=== PATIENT | female | born 1960 | race Caucasian/White ===

== ENCOUNTER 2016-11-18 13:52 | Inpatient (IN) | payer OTHER ==
[~2016-11-18] VITALS: Ht 165.1 cm; Wt 100.7 kg
[~2016-11-18 13:52] MED LIST: ADVIL,NUPRIN,M200 MG PO; BENADRYL25 MG PO; BENZTROPINE MESY1 MG PO; BUSPIRONE HCL10 MG PO; CHANTIX PO; CITALOPRAM HBR10 MG PO; CLONIDINE HCL0.1 MG PO; CLONIDINE HCL0.2 MG PO; COGENTIN0.5 MG PO; DOXYCYCLINE HY100 MG PO; DULCOLAX5 MG PO; HYCODAN SYRUP480 ML PO; IBUPROFEN600 MG PO; LAMICTAL200 MG PO; LAMICTAL25 MG PO; LAMOTRIGINE200 MG PO; LATUDA40 MG PO; LEVAQUIN500 MG PO; LITHIUM CARBON300 M2 PO; LITHIUM CARBON300 MG PO; MACROBID100 MG PO; NICODERM CQ1 EACH TD; OMEPRAZOLE10 M1 PO; OMEPRAZOLE40 M1 PO; PEN-VEE K,VEET500 MG PO; PEPCID20 MG PO; PEPCID40 MG PO; PREDNISONE20 MG PO; PREDNISONE50 MG PO; PREVACID30 MG PO; PROAIR HFA8.5 GM IH; PROMETHAZINE HC25 M1 PO; RISPERIDONE1 MG PO; ROBITUSSIN AC,T10 ML PO; SAPHRIS5 MG SL; TRAZODONE HCL50 MG PO; TUMS500 MG PO; ULTRAM50 MG PO
[2016-11-18 16:25] LABS: HEMATOCRIT 48.5 % (36.0-46.0); MCH 27.6 PG (29.0-34.0); MCHC 30.7 G/DL (30.0-36.0); MEAN PLAT.VOLUME 10.2 uM^3 (9.5-12.4); PLATELET COUNT 371 K/uL (156-360); RBC DIS.WIDTH-CV 13.5 % (11.8-14.6); RED BLOOD COUNT 5.39 M/uL (3.80-5.20); WHITE BLOOD COUNT 16.2 K/uL (4.1-10.2)
[2016-11-18 16:38] LABS: CHLORIDE 102 mEq/L (99-109); SODIUM 140 mEq/L (136-147)
[2016-11-18 16:40] LABS: GLUCOSE 123 mg/dL (70-99)
[2016-11-18 16:41] LABS: ANION GAP 13 MEQ/L (2-14)
[2016-11-18 16:44] LABS: GFR ESTIMATE (CALCULATED) 25 mL/min/
[2016-11-18 16:45] LABS: UREA NITROGEN (BUN) 26 mg/dL (9-23)
[2016-11-18 16:46] LABS: TROP-I INTERPRETATION NEGATIVE; TROPONIN-I 0.01 ng/mL (0.0-0.30)
[2016-11-18] MEDS ORDERED: CATAPRES0.1 MG PO (16:59)
[2016-11-18] MEDS ORDERED: TESSALON200 MG PO (16:59)
[2016-11-18] MEDS ORDERED: GEODON40 MG PO (17:01)
[2016-11-18] MEDS ORDERED: NEURONTIN400 MG PO (17:01)
[2016-11-18] MEDS ORDERED: PREDNISONE10 MG PO (17:02)
[2016-11-18 21:45] VITALS: BP 118/74
[2016-11-19 00:16] VITALS: BP 156/56
[2016-11-19 08:00] VITALS: BP 117/69
[2016-11-19 08:14] LABS: ANION GAP 10 MEQ/L (2-14); CHLORIDE 101 MEQ/L (99-109); GFR ESTIMATE (CALCULATED) 27 mL/min/; GLUCOSE 107 mg/dL (70-99); SAMPLE HEMOLYSIS CHECK 0; SAMPLE ICTERIC CHECK 0; SAMPLE LIPEMIA CHECK 0; SODIUM 137 MEQ/L (136-147); UREA NITROGEN (BUN) 34 mg/dL (9-23)
[2016-11-19 11:45] LABS: METHEMOGLOBIN 1.4 % (0-1.5); PCO2 55 mm Hg (35-45); PO2 44 mm Hg (80-100)
[2016-11-19 11:48] LABS: COMMENTS - BLOOD GASES A+C+; DEVICE NC; O2 FLOW 2 L/MIN; SITE RR; TOTAL RESP RATE 14 resp/min; pH 7.33 (7.35-7.45)
[2016-11-19 12:00] VITALS: BP 120/72
[2016-11-19 12:43] LABS: ADD MIUA? YES; BILIRUBIN NEGATIVE; BLOOD NEGATIVE; COLOR YELLOW ((YELLOW)); GLUCOSE (STRIP) NEGATIVE; KETONES NEGATIVE; LEUKOCYTES NEGATIVE; NITRITE NEGATIVE; PROTEIN (STRIP) NEGATIVE; SPECIFIC GRAVITY 1.015 (1.000-1.030); UROBILINOGEN 0.2 MG/DL (0.2-1.0)
[2016-11-19 12:54] LABS: BACTERIA RARE /HPF; EPITHELIAL CELLS RARE /HPF; MUCUS TRACE /LPF; RED BLOOD CELLS 0-5 /HPF (0-5); UCUL ADDED? NO; WHITE BLOOD CELLS 0-5 /HPF (0-5)
[2016-11-19 12:59] LABS: ANION GAP 7 MEQ/L (2-14); CHLORIDE 99 MEQ/L (99-109); POTASSIUM 3.9 MEQ/L (3.7-5.4); SAMPLE HEMOLYSIS CHECK 0; SAMPLE ICTERIC CHECK 0; SAMPLE LIPEMIA CHECK 0; SODIUM 132 MEQ/L (136-147)
[2016-11-19 13:04] LABS: MCV 90.3 FL (83-99); RBC DIS.WIDTH-CV 13.8 % (11.8-14.6); RED BLOOD COUNT 4.32 M/uL (3.80-5.20)
[2016-11-19 13:05] LABS: GFR ESTIMATE (CALCULATED) 33 mL/min/; GLUCOSE 141 mg/dL (70-99); UREA NITROGEN (BUN) 32 mg/dL (9-23)
[2016-11-19 13:12] LABS: MEAN PLAT.VOLUME 9.9 uM^3 (9.5-12.4)
[2016-11-19 13:39] LABS: D-DIMER ELISA 0.17 mg/L FEU (< 0.57)
[2016-11-19 15:35] LABS: BASE EXCESS -1.9 mEq/L (-3 to +3); BICARBONATE 25.1 mEq/L (22-26); CARBOXY HGB 2.1 % (0-5); METHEMOGLOBIN 1.4 % (0-1.5); PCO2 51 mm Hg (35-45); PO2 69 mm Hg (80-100)
[2016-11-19 15:36] LABS: COMMENTS - BLOOD GASES A+C+; DEVICE NC; O2 FLOW 5 L/MIN; SITE RR; TOTAL RESP RATE 17 resp/min
[2016-11-19 16:57] VITALS: BP 102/57
[2016-11-19 19:20] VITALS: BP 106/56
[2016-11-20 00:15] VITALS: BP 100/59
[2016-11-20 04:03] VITALS: BP 144/59
[2016-11-20 08:20] VITALS: BP 142/85
[2016-11-20 08:40] LABS: ANION GAP 9 MEQ/L (2-14); CHLORIDE 103 MEQ/L (99-109); GLUCOSE 158 mg/dL (70-99); POTASSIUM 4.4 MEQ/L (3.7-5.4); SAMPLE HEMOLYSIS CHECK 0; SAMPLE ICTERIC CHECK 0; SAMPLE LIPEMIA CHECK 0; UREA NITROGEN (BUN) 23 mg/dL (9-23)
[2016-11-20 08:48] LABS: GFR ESTIMATE (CALCULATED) 49 mL/min/; SODIUM 139 MEQ/L (136-147)
[2016-11-20 11:45] VITALS: BP 112/61
[2016-11-20 15:19] VITALS: BP 118/61
[2016-11-20 19:47] VITALS: BP 109/55
[2016-11-21 05:48] VITALS: BP 120/74
[2016-11-21 07:14] LABS: ANION GAP 8 MEQ/L (2-14); CHLORIDE 104 MEQ/L (99-109); GFR ESTIMATE (CALCULATED) > 59 mL/min/; GLUCOSE 128 mg/dL (70-99); POTASSIUM 4.2 MEQ/L (3.7-5.4); SAMPLE HEMOLYSIS CHECK 0; SAMPLE ICTERIC CHECK 0; SAMPLE LIPEMIA CHECK 0; SODIUM 140 MEQ/L (136-147); UREA NITROGEN (BUN) 25 mg/dL (9-23)
[2016-11-21 07:32] LABS: EOSINOPHIL (%) 0 % (0-5); HEMATOCRIT 35.7 % (36.0-46.0); IMMATURE GRANULOCYTE (%) 0.7 % (0.0-0.7); IMMATURE GRANULOCYTE COUNT 0.1 K/uL; INSTRUMENT ABS NEUTROPHIL CT 12.2 K/uL; LYMPHOCYTE COUNT 0.7 K/uL (1.0-2.8); MCH 28.2 PG (29.0-34.0); MCHC 31.7 G/DL (30.0-36.0); MEAN PLAT.VOLUME 10.4 uM^3 (9.5-12.4); MONOCYTE (%) 4.9 % (3-12); MONOCYTE COUNT 0.7 K/uL (0-0.8); NEUTROPHIL COUNT 12.2 K/uL (1.8-6.4); RBC DIS.WIDTH-CV 13.2 % (11.8-14.6); RBC DIS.WIDTH-SD 43.1 % (39-53); RED BLOOD COUNT 4.01 M/uL (3.80-5.20)
[2016-11-21 08:45] VITALS: BP 131/60
[2016-11-21 09:25] LABS: PLATELET COUNT 218 K/uL (156-360); WHITE BLOOD COUNT 13.7 K/uL (4.1-10.2)
[2016-11-21 11:35] VITALS: BP 98/57
[2016-11-21 16:00] VITALS: BP 119/69
[2016-11-21 19:27] VITALS: BP 130/70
[2016-11-22 01:27] VITALS: BP 123/70
[2016-11-22 06:15] VITALS: BP 127/61
[2016-11-22] MEDS ORDERED: PREDNISONE10 MG PO (08:05)
[2016-11-22] MEDS ORDERED: NICOTINE PATCH1 EAC2 TD (08:05)
[2016-11-22] MEDS ORDERED: CEFDINIR300 MG PO (08:08)
[2016-11-22 08:30] VITALS: BP 126/82
== END 2016-11-22 11:25 | disposition home or self-care (01) | DRG 190 ==
LOC: EME 13:52 → 5SOUTH 19:29 → 4EAST 19:29 → EDOF 19:29 → 4EAST 19:29 → 5SOUTH 21:33 → 4EAST 11-19 13:51
PROVIDERS: Emergency Medicine; Hospitalist; Internal Medicine; Nurse Practitioner Adult Health; Physician Assistant
DX: J44.1 Chronic obstructive pulmonary disease with (acute) exacerbation (principal); J96.01 Acute respiratory failure with hypoxia; G93.40 Encephalopathy, unspecified; F11.20 Opioid dependence, uncomplicated; N17.9 Acute kidney failure, unspecified; E87.5 Hyperkalemia; J20.9 Acute bronchitis, unspecified; F17.200 Nicotine dependence, unspecified, uncomplicated; I45.10 Unspecified right bundle-branch block; F17.210 Nicotine dependence, cigarettes, uncomplicated; Z88.8 Allergy status to other drugs, medicaments and biological substances; F32.9 Major depressive disorder, single episode, unspecified; R41.82 Altered mental status, unspecified
CPT/HCPCS: 36600; 71010; 71020; 71250; 74000; 80048; 80048 91; 80053; 81003; 82803; 83735; 84484; 85025; 85027; 85379; 85610; 85730; 86850; 86900; 86901; 87040; 93005; 94640; 94640 76; 94799; 99202; 99281; 99285; J0456; J0696; J1644; J2310; J2920; J2930; J7030; J7050; J7512; J7644

== ENCOUNTER 2016-11-25 11:50 | Emergency (ER) | payer OTHER ==
[~2016-11-25] VITALS: Ht 165.1 cm; Wt 98.2 kg
[~2016-11-25 11:50] MED LIST changes: +CATAPRES0.1 MG PO; +CEFDINIR300 MG PO; +GEODON40 MG PO; +NEURONTIN400 MG PO; +NICOTINE PATCH1 EAC2 TD; +PREDNISONE10 MG PO; +TESSALON200 MG PO
[2016-11-25 14:04] LABS: MCH 27.6 PG (29.0-34.0); MCHC 31.4 G/DL (30.0-36.0); MCV 87.9 FL (83-99); MEAN PLAT.VOLUME 10.4 uM^3 (9.5-12.4); PLATELET COUNT 212 K/uL (156-360); RBC DIS.WIDTH-CV 13.3 % (11.8-14.6); RED BLOOD COUNT 4.78 M/uL (3.80-5.20); WHITE BLOOD COUNT 12.3 K/uL (4.1-10.2)
[2016-11-25 14:14] LABS: CHLORIDE 104 mEq/L (99-109); POTASSIUM 4.4 mEq/L (3.7-5.4); SODIUM 140 mEq/L (136-147)
[2016-11-25 14:16] LABS: GLUCOSE 138 mg/dL (70-99)
[2016-11-25 14:17] LABS: ANION GAP 11 MEQ/L (2-14)
[2016-11-25 14:19] LABS: GFR ESTIMATE (CALCULATED) 49 mL/min/
[2016-11-25 14:20] LABS: UREA NITROGEN (BUN) 20 mg/dL (9-23)
[2016-11-25] MEDS ORDERED: ULTRAM50 MG PO (14:40)
[2016-11-25 14:51] VITALS: BP 122/77
== END 2016-11-25 14:54 | disposition home or self-care (01) ==
LOC: EME 11:50
PROVIDERS: Physician Assistant Medical
DX: T38.0X5A Adverse effect of glucocorticoids and synthetic analogues, initial encounter (principal); S29.011A Strain of muscle and tendon of front wall of thorax, initial encounter; X50.9XXA Other and unspecified overexertion or strenuous movements or postures, initial encounter; M79.7 Fibromyalgia; K21.9 Gastro-esophageal reflux disease without esophagitis; B19.20 Unspecified viral hepatitis C without hepatic coma; F17.200 Nicotine dependence, unspecified, uncomplicated
CPT/HCPCS: 71020; 80048; 85027; 99281; 99284